=== PATIENT | female | born 1970 | race Asian ===

== ENCOUNTER → 2019-08-30 | Outpatient (CLI) | payer OTHER ==
[~2019-08-30] MED LIST: OMNIPAQUE 350 MG/ML, 100ML BOTTLE ONE
== END | disposition home or self-care (01) ==
LOC: CFH 11:44
PROVIDERS: ATTEND Internal Medicine Gastroenterology
DX: Z12.11 Encounter for screening for malignant neoplasm of colon (principal); R10.31 Right lower quadrant pain; K76.0 Fatty (change of) liver, not elsewhere classified; N85.2 Hypertrophy of uterus
CPT/HCPCS: 74177; Q9967

== ENCOUNTER 2019-09-10 09:22 | Observation (INO) | payer OTHER ==
[2019-09-09 12:54] LABS: BASOPHILS # (AUTO) 0.02 x10^3/uL (0-0.1); BASOPHILS % (AUTO) 0 % (0-1); EOSINOPHILS # (AUTO) 0.12 x10^3/uL (0-0.4); EOSINOPHILS % (AUTO) 2 % (1-7); LYMPHOCYTES # (AUTO) 2.62 x10^3/uL (1-3.4); LYMPHOCYTES % (AUTO) 42 % (22-44); MD NO; MEAN CORPUSCULAR HEMOGLOBIN 32.2 pg (27.0-34.8); MEAN CORPUSCULAR HGB CONC 33.7 g/dL (32.4-35.8); MEAN CORPUSCULAR VOLUME 95.5 fL (80-100); MEAN PLATELET VOLUME 6.3 fL (7.4-10.4); MONOCYTES # (AUTO) 0.59 x10^3/uL (0.2-0.8); MONOCYTES % (AUTO) 9 % (2-9); NEUTROPHILS # (AUTO) 2.95 x10^3/uL (1.8-6.8); NEUTROPHILS % (AUTO) 47 % (42-75); PLATELET COUNT 454 x10^3/uL (130-400); RED BLOOD COUNT 4.09 x10^6/uL (3.82-5.3); RED CELL DISTRIBUTION WIDTH 12.9 % (9.6-15.2)
[2019-09-09 13:03] LABS: INTERNATIONAL NORMALIZED RATIO 0.94 (0.93-1.1)
[2019-09-09 13:09] LABS: CHLORIDE 107 mmol/L (98-107)
[2019-09-09 13:22] LABS: ALANINE AMINOTRANSFERASE 16 U/L (12-78); ALKALINE PHOSPHATASE 64 U/L (45-117); ANION GAP 9 mmol/L (5-15); BILIRUBIN,TOTAL 0.4 mg/dL (0.2-1.0); CALCIUM 9.5 mg/dL (8.5-10.1); CREATININE 0.79 mg/dL (0.55-1.02); TOTAL PROTEIN 8.6 g/dL (6.4-8.2)
[~2019-09-10] VITALS: Ht 162.6 cm; Wt 62.9 kg
[2019-09-10] MEDS ORDERED: CEFOTETAN PMX 2GM/50ML 50 ML IV STA (09:41)
[2019-09-10] MEDS ORDERED: LACTATED RINGERS 1,000 ML IV SCH (09:41)
[2019-09-10] MEDS ORDERED: LIDOCAINE-MPF 1%, 2ML INFIL STA (09:42)
[2019-09-10] MEDS ORDERED: CHLORHEXIDINE 15 ML UDC MM STA (09:42)
[2019-09-10 10:02] VITALS: BP 95/62
[2019-09-10] MEDS ORDERED: BUPIVACAINE/PF-EPI 0.25% 1:200K ONE (12:51)
[2019-09-10] MEDS ORDERED: MIDAZOLAM 1 MG/ML, 2ML ONE (13:15)
[2019-09-10] MEDS ORDERED: FENTANYL PF 250 MCG/5ML ONE (13:15)
[2019-09-10] MEDS ORDERED: LIDOCAINE PF 2%, 5ML ONE (13:21)
[2019-09-10] MEDS ORDERED: ACETAMINOPHEN 325 MG TABLET PO PRN (14:00)
[2019-09-10] MEDS ORDERED: HYDROmorphone 1 MG/ML, 1ML INJ IVPush PRN (14:00)
[2019-09-10] MEDS ORDERED: FENTANYL PF 100 MCG/2ML IV PRN (14:00)
[2019-09-10] MEDS ORDERED: PROMETHAZINE 25 MG SUPP PR PRN (14:00)
[2019-09-10] MEDS ORDERED: PROMETHAZINE 25 MG/ML, 1ML IVPush PRN (14:00)
[2019-09-10] MEDS ORDERED: OXYcodone 5 MG/5 ML ORAL.SOL UDC PO PRN (14:00)
[2019-09-10] MEDS ORDERED: LORazepam 2 MG/ML, 1ML IVPush PRN (14:00)
[2019-09-10] MEDS ORDERED: DIAZEPAM 5 MG/ML, 2ML IVPush PRN (14:00)
[2019-09-10] MEDS ORDERED: ONDANSETRON 2MG/ML, 2ML IVPush PRN (14:00)
[2019-09-10] MEDS ORDERED: SUCCINYLCHOLINE 20 MG/ML, 10ML ONE (15:18)
[2019-09-10] MEDS ORDERED: NEOSTIGMINE 1 MG/ML, 10ML ONE (15:18)
[2019-09-10] MEDS ORDERED: DEXAMETHASONE 4 MG/ML, 1ML ONE (15:18)
[2019-09-10] MEDS ORDERED: PROPOFOL 10 MG/ML, 20ML ONE (15:18)
[2019-09-10] MEDS ORDERED: ROCURONIUM 10MG/ML,5ML ONE (15:18)
[2019-09-10] MEDS ORDERED: ONDANSETRON 2MG/ML, 2ML ONE (15:18)
[2019-09-10] MEDS ORDERED: CEFAZOLIN 1,000 MG ONE (15:18)
[2019-09-10] MEDS ORDERED: GLYCOPYRROLATE 0.2MG/1ML, 5ML ONE (15:18)
[2019-09-10] MEDS ORDERED: FENTANYL PF 100 MCG/2ML ONE ×3 (15:19→19:18)
[2019-09-10] MEDS ORDERED: OXYcodone 5 MG/5 ML ORAL.SOL UDC ONE (18:35)
[2019-09-10] MEDS ORDERED: ACETAMINOPHEN 650 MG/20.3 ML UDC ONE (18:35)
[2019-09-10 18:59] LABS: MEAN CORPUSCULAR HEMOGLOBIN 32.1 pg (27.0-34.8); MEAN CORPUSCULAR HGB CONC 33.8 g/dL (32.4-35.8); MEAN CORPUSCULAR VOLUME 94.9 fL (80-100); MEAN PLATELET VOLUME 6.5 fL (7.4-10.4); PLATELET COUNT 312 x10^3/uL (130-400); RED BLOOD COUNT 2.46 x10^6/uL (3.82-5.3); RED CELL DISTRIBUTION WIDTH 12.8 % (9.6-15.2)
[2019-09-10 19:00] LABS: MD YES
[2019-09-10] MEDS ORDERED: KETOROLAC 30 MG/1 ML ONE (19:32)
[2019-09-10] MEDS ORDERED: KETOROLAC 30 MG/1 ML IVPush STA (19:32)
[2019-09-10] MEDS: OXYcodone/APAP 5/325MG TABLET PO PRN ×2 (20:14→23:35)
[2019-09-10 20:58] LABS: BAND#(MANUAL) 3.35 x10^3/uL; BANDS%(MANUAL) 14 % (0-7); LYMPH#(MANUAL) 0.96 x10^3/uL (1-3.4); LYMPHS% (MANUAL) 4 % (22-44); MONOS#(MANUAL) 0.96 x10^3/uL (0.3-2.7); MONOS% (MANUAL) 4 % (2-9); SEG#(MANUAL) 18.64 x10^3/uL (1.8-6.8); SEGS% (MANUAL) 78 % (42-75)
[2019-09-10 21:00] LABS: <PLATELET ESTIMATE> ADEQUATE; <PLT MORPHOLOGY> NORMAL PLT MORPH; <RBC MORPHOLOGY> NORMAL
[2019-09-10] MEDS ORDERED: KETOROLAC 30 MG/1 ML IVPush SCH (21:30)
[2019-09-10] MEDS: MORPHINE SULFATE 4 MG/ML, 1ML IVPush PRN (21:34)
[2019-09-10] MEDS: ONDANSETRON 2MG/ML, 2ML IVPush PRN (22:36)
[2019-09-11] VITALS (10 sets, daily range): BP systolic 83–100; BP diastolic 40–62
[2019-09-11] MEDS ORDERED: KETOROLAC 30 MG/1 ML IVPush PRN (02:30)
[2019-09-11] MEDS: ONDANSETRON 2MG/ML, 2ML IVPush PRN (04:55)
[2019-09-11] MEDS: LACTATED RINGERS 1,000 ML IV SCH ×2 (04:59→22:38)
[2019-09-11 05:21] LABS: BASOPHILS # (AUTO) 0.01 x10^3/uL (0-0.1); BASOPHILS % (AUTO) 0 % (0-1); EOSINOPHILS % (AUTO) 0 % (1-7); LYMPHOCYTES # (AUTO) 1.26 x10^3/uL (1-3.4); LYMPHOCYTES % (AUTO) 9 % (22-44); MD NO; MEAN CORPUSCULAR HEMOGLOBIN 32.1 pg (27.0-34.8); MEAN CORPUSCULAR HGB CONC 33.5 g/dL (32.4-35.8); MEAN CORPUSCULAR VOLUME 95.9 fL (80-100); MEAN PLATELET VOLUME 6.9 fL (7.4-10.4); MONOCYTES # (AUTO) 1.14 x10^3/uL (0.2-0.8); MONOCYTES % (AUTO) 8 % (2-9); NEUTROPHILS # (AUTO) 11.42 x10^3/uL (1.8-6.8); NEUTROPHILS % (AUTO) 83 % (42-75); PLATELET COUNT 311 x10^3/uL (130-400); RED BLOOD COUNT 2.58 x10^6/uL (3.82-5.3); RED CELL DISTRIBUTION WIDTH 12.6 % (9.6-15.2)
[2019-09-11] MEDS: OXYcodone/APAP 5/325MG TABLET PO PRN (05:25)
[2019-09-11] MEDS: MORPHINE SULFATE 4 MG/ML, 1ML IVPush PRN (05:42)
[2019-09-11] MEDS ORDERED: LACTATED RINGERS 1,000 ML IV SCH (09:41)
[2019-09-11 19:06] LABS: BASOPHILS # (AUTO) 0.03 x10^3/uL (0-0.1); BASOPHILS % (AUTO) 0 % (0-1); EOSINOPHILS # (AUTO) 0.01 x10^3/uL (0-0.4); EOSINOPHILS % (AUTO) 0 % (1-7); LYMPHOCYTES # (AUTO) 1.79 x10^3/uL (1-3.4); LYMPHOCYTES % (AUTO) 15 % (22-44); MD NO; MEAN CORPUSCULAR HEMOGLOBIN 31.5 pg (27.0-34.8); MEAN CORPUSCULAR HGB CONC 33.8 g/dL (32.4-35.8); MEAN CORPUSCULAR VOLUME 93.3 fL (80-100); MEAN PLATELET VOLUME 6.9 fL (7.4-10.4); MONOCYTES % (AUTO) 12 % (2-9); NEUTROPHILS # (AUTO) 8.83 x10^3/uL (1.8-6.8); NEUTROPHILS % (AUTO) 73 % (42-75); PLATELET COUNT 227 x10^3/uL (130-400); RED BLOOD COUNT 3.31 x10^6/uL (3.82-5.3); RED CELL DISTRIBUTION WIDTH 14.4 % (9.6-15.2)
[2019-09-12 00:47] VITALS: BP 92/50
[2019-09-12 05:18] LABS: BASOPHILS # (AUTO) 0.02 x10^3/uL (0-0.1); BASOPHILS % (AUTO) 0 % (0-1); EOSINOPHILS # (AUTO) 0.05 x10^3/uL (0-0.4); EOSINOPHILS % (AUTO) 0 % (1-7); LYMPHOCYTES # (AUTO) 3.15 x10^3/uL (1-3.4); LYMPHOCYTES % (AUTO) 28 % (22-44); MD NO; MEAN CORPUSCULAR HEMOGLOBIN 31.2 pg (27.0-34.8); MEAN CORPUSCULAR HGB CONC 33.8 g/dL (32.4-35.8); MEAN CORPUSCULAR VOLUME 92.3 fL (80-100); MONOCYTES # (AUTO) 1.11 x10^3/uL (0.2-0.8); MONOCYTES % (AUTO) 10 % (2-9); NEUTROPHILS # (AUTO) 7.07 x10^3/uL (1.8-6.8); NEUTROPHILS % (AUTO) 62 % (42-75); PLATELET COUNT 215 x10^3/uL (130-400); RED BLOOD COUNT 3.02 x10^6/uL (3.82-5.3)
[2019-09-12 07:11] VITALS: BP 96/69
[2019-09-12] MEDS: LACTATED RINGERS 1,000 ML IV SCH (08:54)
[2019-09-12] MEDS ORDERED: ACETAMINOPHEN 325 MG TABLET PO PRN (14:30)
[2019-09-12 15:02] VITALS: BP 101/62
== END 2019-09-12 17:07 | disposition home or self-care (01) ==
LOC: OR 09:22 → 3WST 19:45 → OUT 21:06 → 3WST 21:21
PROVIDERS: ADMIT Specialist; ATTEND Specialist
DX: Z03.818 Encounter for observation for suspected exposure to other biological agents ruled out (principal); R19.07 Generalized intra-abdominal and pelvic swelling, mass and lump; Z79.899 Other long term (current) drug therapy
CPT/HCPCS: 36415; 36430; 58552; 71046; 74018; 80053; 84703; 85025; 85610; 85730; 86304; 86850; 86900; 86920; 86923; 88305; 88307; 88331; 88341; 88342; 88360; 93005; 96374; 96375; 96376; C1769; C2617; G0378; J0330; J0690; J1100; J1885; J2250; J2270; J2405; J2704; J2710; J3010; J3490; J7120; P9016; S2900; U0001

== ENCOUNTER 2019-10-08 08:05 | Day surgery (SDC) | payer OTHER ==
[2019-10-07 09:30] LABS: BASOPHILS # (AUTO) 0.03 x10^3/uL (0-0.1); BASOPHILS % (AUTO) 0 % (0-1); EOSINOPHILS # (AUTO) 0.17 x10^3/uL (0-0.4); EOSINOPHILS % (AUTO) 2 % (1-7); LYMPHOCYTES # (AUTO) 1.73 x10^3/uL (1-3.4); LYMPHOCYTES % (AUTO) 23 % (22-44); MD NO; MEAN CORPUSCULAR HEMOGLOBIN 30.4 pg (27.0-34.8); MEAN CORPUSCULAR HGB CONC 32.8 g/dL (32.4-35.8); MEAN CORPUSCULAR VOLUME 92.7 fL (80-100); MEAN PLATELET VOLUME 6.4 fL (7.4-10.4); MONOCYTES # (AUTO) 0.67 x10^3/uL (0.2-0.8); MONOCYTES % (AUTO) 9 % (2-9); NEUTROPHILS # (AUTO) 5.03 x10^3/uL (1.8-6.8); NEUTROPHILS % (AUTO) 66 % (42-75); PLATELET COUNT 445 x10^3/uL (130-400); RED BLOOD COUNT 3.86 x10^6/uL (3.82-5.3); RED CELL DISTRIBUTION WIDTH 13.7 % (9.6-15.2)
[2019-10-07 09:38] LABS: INTERNATIONAL NORMALIZED RATIO 0.95 (0.93-1.1); PROTHROMBIN TIME 10.1 Seconds (9.6-11.5)
[2019-10-07 09:40] LABS: ALBUMIN 3.4 g/dL (3.4-5.0); ANION GAP 6 mmol/L (5-15); CHLORIDE 107 mmol/L (98-107)
[2019-10-07 09:44] LABS: ALANINE AMINOTRANSFERASE 17 U/L (12-78); ALKALINE PHOSPHATASE 68 U/L (45-117); BILIRUBIN,TOTAL 0.5 mg/dL (0.2-1.0); CREATININE 0.85 mg/dL (0.55-1.02); TOTAL PROTEIN 7.7 g/dL (6.4-8.2)
[~2019-10-08] VITALS: Ht 162.6 cm; Wt 55.8 kg
[2019-10-08] MEDS ORDERED: FENTANYL PF 250 MCG/5ML ONE (08:33)
[2019-10-08] MEDS ORDERED: MIDAZOLAM 1 MG/ML, 2ML ONE (08:33)
[2019-10-08] MEDS ORDERED: PROPOFOL 10 MG/ML, 20ML ONE (08:35)
[2019-10-08] MEDS ORDERED: DEXAMETHASONE 4 MG/ML, 1ML ONE (08:35)
[2019-10-08] MEDS ORDERED: ONDANSETRON 2MG/ML, 2ML ONE (08:35)
[2019-10-08] MEDS ORDERED: CEFAZOLIN 1,000 MG ONE (08:35)
[2019-10-08 09:00] VITALS: BP 100/65
[2019-10-08] MEDS ORDERED: LACTATED RINGERS 1,000 ML IV SCH (09:00)
[2019-10-08] MEDS ORDERED: CEFOTETAN PMX 2GM/50ML 50 ML IV ONE (09:00)
[2019-10-08] MEDS ORDERED: CHLORHEXIDINE 15 ML UDC MM ONE (09:00)
[2019-10-08] MEDS ORDERED: BUPIVACAINE/PF-EPI 0.25% 1:200K ONE (10:29)
[2019-10-08] MEDS ORDERED: HALOPERIDOL 5 MG/ML IV PRN (11:00)
[2019-10-08] MEDS ORDERED: MEPERIDINE/PF 25MG/0.5ML IVPush PRN (11:00)
[2019-10-08] MEDS ORDERED: morphine SULFATE 10 MG/ML, 1ML IVPush PRN (11:00)
[2019-10-08] MEDS ORDERED: LABETALOL 5MG/ML, 20ML IV PRN (11:00)
[2019-10-08] MEDS ORDERED: FENTANYL PF 100 MCG/2ML IV PRN (11:00)
[2019-10-08] MEDS ORDERED: HYDROmorphone 1 MG/ML, 1ML INJ IVPush PRN (11:00)
[2019-10-08] MEDS ORDERED: OXYcodone 5 MG/5 ML ORAL.SOL UDC PO PRN (11:00)
[2019-10-08] MEDS ORDERED: hydrALAzine 20 MG/ML, 1ML IV PRN (11:00)
[2019-10-08] MEDS ORDERED: PROMETHAZINE 25 MG/ML, 1ML IVPush PRN (11:00)
== END 2019-10-08 14:45 | disposition home or self-care (01) ==
LOC: OUT 08:05
PROVIDERS: ATTEND Specialist
DX: R33.8 Other retention of urine (principal); Z11.59 Encounter for screening for other viral diseases; C53.9 Malignant neoplasm of cervix uteri, unspecified; Z79.01 Long term (current) use of anticoagulants; Z79.899 Other long term (current) drug therapy; Z90.79 Acquired absence of other genital organ(s); Z90.710 Acquired absence of both cervix and uterus; Z90.722 Acquired absence of ovaries, bilateral; Z96.0 Presence of urogenital implants; Z80.3 Family history of malignant neoplasm of breast; Z80.0 Family history of malignant neoplasm of digestive organs
CPT/HCPCS: 36415; 51102; 80053; 85025; 85610; 85730; J0690; J1100; J2250; J2405; J2704; J3010; J3490; J7120; U0001

== ENCOUNTER 2019-10-09 12:20 | Outpatient (CLI) | payer OTHER ==
[2019-10-09] MEDS ORDERED: OMNIPAQUE 350 MG/ML, 100ML BOTTLE ONE (13:45)
== END 2019-10-09 23:59 | disposition home or self-care (01) ==
LOC: RAD 12:20
PROVIDERS: ATTEND Specialist
DX: C53.9 Malignant neoplasm of cervix uteri, unspecified (principal); K76.0 Fatty (change of) liver, not elsewhere classified; R91.1 Solitary pulmonary nodule; Z90.710 Acquired absence of both cervix and uterus
CPT/HCPCS: 71260; 74177; Q9967

== ENCOUNTER → 2019-10-18 | Outpatient (CLI) | payer OTHER ==
[2019-10-18 14:08] LABS: BASOPHILS # (AUTO) 0.03 x10^3/uL (0-0.1); BASOPHILS % (AUTO) 0 % (0-1); EOSINOPHILS # (AUTO) 0.28 x10^3/uL (0-0.4); EOSINOPHILS % (AUTO) 4 % (1-7); LYMPHOCYTES % (AUTO) 34 % (22-44); MD NO; MEAN CORPUSCULAR HEMOGLOBIN 29.5 pg (27.0-34.8); MEAN CORPUSCULAR HGB CONC 32.6 g/dL (32.4-35.8); MEAN CORPUSCULAR VOLUME 90.5 fL (80-100); MEAN PLATELET VOLUME 6.6 fL (7.4-10.4); MONOCYTES # (AUTO) 0.55 x10^3/uL (0.2-0.8); MONOCYTES % (AUTO) 8 % (2-9); NEUTROPHILS # (AUTO) 3.74 x10^3/uL (1.8-6.8); NEUTROPHILS % (AUTO) 54 % (42-75); PLATELET COUNT 539 x10^3/uL (130-400); RED BLOOD COUNT 3.82 x10^6/uL (3.82-5.3); RED CELL DISTRIBUTION WIDTH 13.5 % (9.6-15.2)
[2019-10-18 14:18] LABS: INTERNATIONAL NORMALIZED RATIO 0.97 (0.93-1.1); PROTHROMBIN TIME 10.3 Seconds (9.6-11.5)
[2019-10-18 14:21] LABS: ALANINE AMINOTRANSFERASE 19 U/L (12-78); ALBUMIN 3.6 g/dL (3.4-5.0); ANION GAP 7 mmol/L (5-15); CALCIUM 9.1 mg/dL (8.5-10.1); CHLORIDE 106 mmol/L (98-107); CREATININE 0.86 mg/dL (0.55-1.02)
[2019-10-18 14:24] LABS: ALKALINE PHOSPHATASE 65 U/L (45-117); BILIRUBIN,TOTAL 0.3 mg/dL (0.2-1.0); TOTAL PROTEIN 8.1 g/dL (6.4-8.2)
== END | disposition home or self-care (01) ==
LOC: STAR 13:22
PROVIDERS: ATTEND Specialist
DX: Z01.818 Encounter for other preprocedural examination (principal); C53.9 Malignant neoplasm of cervix uteri, unspecified
CPT/HCPCS: 36415; 80053; 85025; 85610; 85730

== ENCOUNTER 2019-10-22 08:07 | Day surgery (SDC) | payer OTHER ==
[~2019-10-22] VITALS: Ht 162.6 cm; Wt 55.0 kg
[2019-10-22] MEDS ORDERED: LACTATED RINGERS 1,000 ML IV SCH (08:41)
[2019-10-22 08:44] VITALS: BP 96/49
[2019-10-22] MEDS ORDERED: CEFOTETAN PMX 2GM/50ML 50 ML IV ONE (09:00)
[2019-10-22] MEDS ORDERED: CHLORHEXIDINE 15 ML UDC MM ONE (09:00)
[2019-10-22] MEDS ORDERED: CHOL10003 PO (09:07)
[2019-10-22] MEDS ORDERED: HEPARIN 1,000 UNITS/ML, 10ML ONE (09:57)
[2019-10-22] MEDS ORDERED: BUPIVACAINE/PF 0.25% ONE (09:57)
[2019-10-22] MEDS ORDERED: EPINEPHRINE 1 MG/ML, 1ML ONE (09:58)
[2019-10-22] MEDS ORDERED: FENTANYL PF 100 MCG/2ML ONE (10:07)
[2019-10-22] MEDS ORDERED: ONDANSETRON 2MG/ML, 2ML ONE (10:08)
[2019-10-22] MEDS ORDERED: CEFAZOLIN 1,000 MG ONE (10:08)
[2019-10-22] MEDS ORDERED: PROPOFOL 10 MG/ML, 20ML ONE (10:08)
[2019-10-22] MEDS ORDERED: MIDAZOLAM 1 MG/ML, 2ML ONE (10:08)
[2019-10-22] MEDS ORDERED: DEXAMETHASONE 4 MG/ML, 1ML ONE ×2 (10:08→10:14)
[2019-10-22] MEDS ORDERED: EPHEDRINE 50 MG/ML, 1ML IVPush PRN (12:00)
[2019-10-22] MEDS ORDERED: DIAZEPAM 5 MG/ML, 2ML IVPush PRN (12:00)
[2019-10-22] MEDS ORDERED: PROMETHAZINE 25 MG/ML, 1ML IVPush PRN (12:00)
[2019-10-22] MEDS ORDERED: HYDROmorphone 1 MG/ML, 1ML INJ IVPush PRN (12:00)
[2019-10-22] MEDS ORDERED: OXYcodone 5 MG/5 ML ORAL.SOL UDC PO PRN (12:00)
[2019-10-22] MEDS ORDERED: LABETALOL 5MG/ML, 20ML IV PRN (12:00)
[2019-10-22] MEDS ORDERED: hydrALAzine 20 MG/ML, 1ML IV PRN (12:00)
[2019-10-22] MEDS ORDERED: ONDANSETRON 2MG/ML, 2ML IVPush PRN (12:00)
[2019-10-22] MEDS ORDERED: MEPERIDINE/PF 25MG/0.5ML IVPush PRN (12:00)
[2019-10-22] MEDS ORDERED: PROMETHAZINE 12.5 MG SUPP PR PRN (12:00)
[2019-10-22] MEDS ORDERED: ALBUTEROL SULFATE 2.5 MG/3 ML NPPB PRN (12:00)
[2019-10-22] MEDS ORDERED: MIDAZOLAM 1 MG/ML, 2ML IV PRN (12:00)
[2019-10-22] MEDS ORDERED: FENTANYL PF 100 MCG/2ML IV PRN (12:00)
[2019-10-22] MEDS ORDERED: ACETAMINOPHEN 325 MG TABLET PO PRN (12:00)
[2019-10-22] MEDS ORDERED: DIPHENHYDRAMINE 50 MG/ML, 1ML IVPush PRN (12:00)
[2019-10-22] MEDS ORDERED: VISIPAQUE 270 MG/ML, 50ML BOTTLE ONE (12:01)
[2019-10-22] MEDS ORDERED: OMNIPAQUE 350 MG/ML, 50 ML BOTTLE ONE (12:01)
== END 2019-10-22 16:40 | disposition home or self-care (01) ==
LOC: OUT 08:07
PROVIDERS: ATTEND Specialist
DX: C53.9 Malignant neoplasm of cervix uteri, unspecified (principal); Z11.59 Encounter for screening for other viral diseases; R33.9 Retention of urine, unspecified; N13.5 Crossing vessel and stricture of ureter without hydronephrosis; Z88.5 Allergy status to narcotic agent; Z79.899 Other long term (current) drug therapy; Z90.710 Acquired absence of both cervix and uterus; Z80.0 Family history of malignant neoplasm of digestive organs; Z80.3 Family history of malignant neoplasm of breast; Z82.49 Family history of ischemic heart disease and other diseases of the circulatory system; Z83.3 Family history of diabetes mellitus; Z98.890 Other specified postprocedural states
CPT/HCPCS: 36415; 36561; 52310; 74420; 76937; 77001; 87635; C1758; C1769; C1788; J0171; J1100; J1644; J2250; J2405; J2704; J3010; J3490; J7120; Q9966; Q9967; J0690

== ENCOUNTER 2019-11-21 08:00 | Outpatient (CLI) | payer BC, OTHER ==
[~2019-11-21 08:00] MED LIST changes: +CHOL10003 PO; -OMNIPAQUE 350 MG/ML, 100ML BOTTLE ONE
[2019-11-21] MEDS ORDERED: OMNIPAQUE 350 MG/ML, 100ML BOTTLE ONE (19:00)
== END 2019-11-21 23:59 | disposition home or self-care (01) ==
LOC: RAD 08:00
PROVIDERS: ATTEND Family Medicine
DX: C53.9 Malignant neoplasm of cervix uteri, unspecified (principal); R91.1 Solitary pulmonary nodule
CPT/HCPCS: 71260; 74177; Q9967

== ENCOUNTER → 2019-12-17 | Outpatient (CLI) | payer OTHER ==
[~2019-12-17] MED LIST changes: +melatonin PO; +metformin PO
[2019-12-17 14:46] LABS: BASOPHILS # (AUTO) 0.02 x10^3/uL (0-0.1); BASOPHILS % (AUTO) 0 % (0-1); EOSINOPHILS # (AUTO) 0.21 x10^3/uL (0-0.4); EOSINOPHILS % (AUTO) 3 % (1-7); LYMPHOCYTES # (AUTO) 2.87 x10^3/uL (1-3.4); LYMPHOCYTES % (AUTO) 35 % (22-44); MD NO; MEAN CORPUSCULAR HEMOGLOBIN 29.3 pg (27.0-34.8); MEAN CORPUSCULAR HGB CONC 32.8 g/dL (32.4-35.8); MEAN CORPUSCULAR VOLUME 89.2 fL (80-100); MEAN PLATELET VOLUME 7.1 fL (7.4-10.4); MONOCYTES # (AUTO) 0.69 x10^3/uL (0.2-0.8); MONOCYTES % (AUTO) 8 % (2-9); NEUTROPHILS # (AUTO) 4.46 x10^3/uL (1.8-6.8); NEUTROPHILS % (AUTO) 54 % (42-75); PLATELET COUNT 400 x10^3/uL (130-400); RED BLOOD COUNT 4.19 x10^6/uL (3.82-5.3); RED CELL DISTRIBUTION WIDTH 14.8 % (9.6-15.2)
[2019-12-17 14:50] LABS: ALANINE AMINOTRANSFERASE 22 U/L (12-78); ALBUMIN 3.9 g/dL (3.4-5.0); ANION GAP 6 mmol/L (5-15); CALCIUM 9.4 mg/dL (8.5-10.1); CHLORIDE 106 mmol/L (98-107); CREATININE 0.73 mg/dL (0.55-1.02)
[2019-12-17 14:53] LABS: ALKALINE PHOSPHATASE 67 U/L (45-117); BILIRUBIN,TOTAL 0.2 mg/dL (0.2-1.0)
== END | disposition home or self-care (01) ==
LOC: STAR 13:07
PROVIDERS: ATTEND Thoracic Surgery (Cardiothoracic Vascular Surgery)
DX: Z01.818 Encounter for other preprocedural examination (principal)
CPT/HCPCS: 36415; 80053; 85025; 93005

== ENCOUNTER → 2019-12-20 | Outpatient (CLI) | payer OTHER | END | disposition home or self-care (01) | LOC: STAR 09:51 | PROVIDERS: ATTEND Anesthesiology | DX: Z01.812 Encounter for preprocedural laboratory examination (principal); Z20.828 Contact with and (suspected) exposure to other viral communicable diseases | CPT/HCPCS: 36415; 87635 ==

== ENCOUNTER 2019-12-25 09:29 | Inpatient (IN) | payer OTHER ==
[~2019-12-25] VITALS: Ht 162.6 cm; Wt 59.4 kg
[2019-12-25] MEDS ORDERED: MELATONIN PO (09:55)
[2019-12-25] MEDS ORDERED: METF500T17 PO (09:55)
[2019-12-25] MEDS ORDERED: TAMS-11 PO (09:55)
[2019-12-25] MEDS ORDERED: SIMV40TA20 PO (09:55)
[2019-12-25] MEDS ORDERED: CHLORHEXIDINE 15 ML UDC MM ONE (10:00)
[2019-12-25] MEDS ORDERED: LACTATED RINGERS 1,000 ML IV SCH ×2 (10:29→13:30)
[2019-12-25] MEDS ORDERED: PROPOFOL 10 MG/ML, 20ML ONE (10:33)
[2019-12-25] MEDS ORDERED: NEOSTIGMINE 1 MG/ML, 10ML ONE (10:33)
[2019-12-25] MEDS ORDERED: ONDANSETRON 2MG/ML, 2ML ONE (10:33)
[2019-12-25] MEDS ORDERED: DEXAMETHASONE 4 MG/ML, 1ML ONE (10:33)
[2019-12-25] MEDS ORDERED: CEFAZOLIN 1,000 MG ONE (10:33)
[2019-12-25] MEDS ORDERED: ROCURONIUM 10MG/ML,5ML ONE (10:33)
[2019-12-25] MEDS ORDERED: GLYCOPYRROLATE 0.2MG/1ML, 5ML ONE (10:33)
[2019-12-25] MEDS ORDERED: BUPIVACAINE/PF 0.5% ONE (10:50)
[2019-12-25] MEDS ORDERED: EPINEPHRINE 1 MG/ML, 1ML ONE (10:50)
[2019-12-25] MEDS ORDERED: FENTANYL PF 250 MCG/5ML ONE (10:56)
[2019-12-25] MEDS ORDERED: MIDAZOLAM 1 MG/ML, 2ML ONE (10:56)
[2019-12-25] MEDS ORDERED: BUPIVACAINE/PF-EPI 0.5% 1:200K INFIL ONE (11:12)
[2019-12-25] MEDS ORDERED: ACETAMINOPHEN 325 MG TABLET PO PRN (11:30)
[2019-12-25] MEDS ORDERED: OXYcodone 5 MG/5 ML ORAL.SOL UDC PO PRN (11:30)
[2019-12-25] MEDS ORDERED: HYDROmorphone 1 MG/ML, 1ML INJ IVPush PRN (11:30)
[2019-12-25] MEDS ORDERED: MEPERIDINE/PF 25MG/0.5ML IVPush PRN (11:30)
[2019-12-25] MEDS ORDERED: FENTANYL PF 100 MCG/2ML IV PRN (11:30)
[2019-12-25] MEDS ORDERED: LABETALOL 5MG/ML, 20ML IV PRN (11:30)
[2019-12-25] MEDS ORDERED: PROMETHAZINE 25 MG/ML, 1ML IVPush PRN (11:30)
[2019-12-25] MEDS ORDERED: hydrALAzine 20 MG/ML, 1ML IV PRN (11:30)
[2019-12-25] MEDS ORDERED: HALOPERIDOL 5 MG/ML IV PRN (11:30)
[2019-12-25] MEDS ORDERED: OXYcodone 5 MG/5 ML ORAL.SOL UDC ONE (12:23)
[2019-12-25] MEDS ORDERED: FENTANYL PF 100 MCG/2ML ONE (12:23)
[2019-12-25] MEDS ORDERED: ACETAMINOPHEN 650 MG SUPP PR PRN (12:30)
[2019-12-25] MEDS ORDERED: HYDROmorphone 1 MG/ML, 1ML INJ IV PRN (12:30)
[2019-12-25] MEDS: INSULIN REGULAR 100 UNITS/ML, 3ML VIAL SQ-INSULIN SCH ×3 (12:30→21:00)
[2019-12-25] MEDS ORDERED: hydrALAzine 20 MG/ML, 1ML IVPush PRN (12:30)
[2019-12-25] MEDS ORDERED: LORazepam 2 MG/ML, 1ML IVPush PRN (12:30)
[2019-12-25] MEDS ORDERED: LORazepam 1MG TABLET PO PRN (12:30)
[2019-12-25] MEDS ORDERED: HYDROcodone/APAP 5/325 TABLET PO PRN (12:30)
[2019-12-25] MEDS ORDERED: FAMOTIDINE 20 MG TABLET PO SCH (12:30)
[2019-12-25] MEDS ORDERED: DIPHENHYDRAMINE 25 MG CAPSULE PO PRN (12:30)
[2019-12-25] MEDS ORDERED: ENALAPRILAT 1.25 MG/ML, 2ML IVPush PRN (12:30)
[2019-12-25] MEDS ORDERED: ONDANSETRON 2MG/ML, 2ML IVPush PRN (12:30)
[2019-12-25] MEDS ORDERED: DIPHENHYDRAMINE 50 MG/ML, 1ML IVPush PRN (12:30)
[2019-12-25 13:36] VITALS: BP 101/66
[2019-12-25 18:57] VITALS: BP 100/64
[2019-12-25] MEDS: ACETAMINOPHEN 325 MG TABLET PO PRN (21:15)
[2019-12-25] MEDS: metFORMIN 500 MG TABLET PO SCH (21:15)
[2019-12-25] MEDS: FAMOTIDINE 20 MG/2 ML IVPush SCH (21:15)
[2019-12-25 23:53] VITALS: BP 96/58
[2019-12-26 03:42] VITALS: BP 99/58
[2019-12-26] MEDS: ACETAMINOPHEN 325 MG TABLET PO PRN ×2 (03:59→08:41)
[2019-12-26 04:41] LABS: BASOPHILS # (AUTO) 0.04 x10^3/uL (0-0.1); BASOPHILS % (AUTO) 0 % (0-1); EOSINOPHILS % (AUTO) 0 % (1-7); LYMPHOCYTES # (AUTO) 2.06 x10^3/uL (1-3.4); LYMPHOCYTES % (AUTO) 17 % (22-44); MD NO; MEAN CORPUSCULAR HEMOGLOBIN 29.2 pg (27.0-34.8); MEAN CORPUSCULAR HGB CONC 32.5 g/dL (32.4-35.8); MEAN CORPUSCULAR VOLUME 89.9 fL (80-100); MEAN PLATELET VOLUME 6.9 fL (7.4-10.4); MONOCYTES # (AUTO) 0.68 x10^3/uL (0.2-0.8); MONOCYTES % (AUTO) 5 % (2-9); NEUTROPHILS # (AUTO) 9.71 x10^3/uL (1.8-6.8); NEUTROPHILS % (AUTO) 78 % (42-75); PLATELET COUNT 395 x10^3/uL (130-400); RED BLOOD COUNT 4.12 x10^6/uL (3.82-5.3); RED CELL DISTRIBUTION WIDTH 15.1 % (9.6-15.2)
[2019-12-26 04:58] LABS: ANION GAP 7 mmol/L (5-15); CALCIUM 9.3 mg/dL (8.5-10.1); CHLORIDE 104 mmol/L (98-107)
[2019-12-26 04:59] LABS: CREATININE 0.85 mg/dL (0.55-1.02)
[2019-12-26] MEDS: INSULIN REGULAR 100 UNITS/ML, 3ML VIAL SQ-INSULIN SCH ×4 (07:00→21:01)
[2019-12-26 07:44] VITALS: BP 98/65
[2019-12-26] MEDS: TAMSULOSIN 0.4 MG CAP.ER.24H PO SCH (08:29)
[2019-12-26] MEDS: FAMOTIDINE 20 MG/2 ML IVPush SCH (08:29)
[2019-12-26] MEDS: metFORMIN 500 MG TABLET PO SCH ×2 (08:29→21:00)
[2019-12-26] MEDS ORDERED: HYDR-3240 PO (10:36)
[2019-12-26 13:50] VITALS: BP 130/79
[2019-12-26] MEDS: ENOXAPARIN 40 MG/0.4 ML SQ SCH (16:00)
[2019-12-26 18:46] VITALS: BP 116/72
[2019-12-26] MEDS: FAMOTIDINE 20 MG TABLET PO SCH (21:00)
[2019-12-26] MEDS ORDERED: SIMVASTATIN 40 MG TABLET PO SCH (21:00)
[2019-12-27 02:10] VITALS: BP 96/61
[2019-12-27 07:22] VITALS: BP 104/68
[2019-12-27] MEDS: TAMSULOSIN 0.4 MG CAP.ER.24H PO SCH (07:22)
[2019-12-27] MEDS: ACETAMINOPHEN 325 MG TABLET PO PRN (07:22)
[2019-12-27] MEDS: FAMOTIDINE 20 MG TABLET PO SCH (07:22)
[2019-12-27] MEDS: INSULIN REGULAR 100 UNITS/ML, 3ML VIAL SQ-INSULIN SCH ×3 (07:22→16:00)
[2019-12-27] MEDS: metFORMIN 500 MG TABLET PO SCH (07:22)
[2019-12-27 12:26] VITALS: BP 118/77
[2019-12-27] MEDS: ENOXAPARIN 40 MG/0.4 ML SQ SCH (16:00)
== END 2019-12-27 17:30 | disposition home or self-care (01) | DRG 165 ==
LOC: ORIP 09:29 → 4NW 13:04
PROVIDERS: ADMIT Thoracic Surgery (Cardiothoracic Vascular Surgery); ATTEND Thoracic Surgery (Cardiothoracic Vascular Surgery)
PROC: 0BBJ4ZZ Excision of Left Lower Lung Lobe, Percutaneous Endoscopic Approach (ICD-10-PCS; principal; 2019-12-25 11:45)
DX: R91.1 Solitary pulmonary nodule (principal); C55 Malignant neoplasm of uterus, part unspecified; Z88.5 Allergy status to narcotic agent
CPT/HCPCS: 36415; J3490; S0020; 71045; 80048; 82962; 85025; 86850; 86900; 88307; C1729; G0378; J0171; J0690; J1100; J1170; J2250; J2405; J2704; J2710; J3010; J7120; Q0163